=== PATIENT | male | born 1965 | race Caucasian/White ===

== ENCOUNTER → 2017-10-13 | Outpatient (CLI) | payer OTHER ==
--- NOTE | 2017-10-13 10:16 | XR ---
EXAMINATION TYPE: XR thoracic spine complete DATE OF EXAM: 10/13/2017 COMPARISON: NONE HISTORY: Pain Alignment is anatomic. There is no compression deformities. Vertebral body height and disc interspa tico are maintained. Curvature the spine noted. Mild hypertrophic changes anteriorly. IMPRESSION: 1. No acute abnormality.
== END | disposition home or self-care (01) ==
LOC: RADXRYALE 09:26
PROVIDERS: ATTEND Internal Medicine
DX: M54.6 Pain in thoracic spine (principal)
CPT/HCPCS: 72072

== ENCOUNTER → 2017-11-11 | Outpatient (CLI) | payer OTHER ==
--- NOTE | 2017-11-11 20:11 | MR ---
EXAMINATION TYPE: MR cervical spine wo con DATE OF EXAM: 11/11/2017 COMPARISON: NONE HISTORY: Neck pain with numbness TECHNIQUE: Multiplanar, multisequence images of the cervical spine were acquired. C2-C3: No evidence for degenerative disc disease. No disc bulge/herniation or protrusion. No Canal stenosis. Hypertrophic change of the facets result in mild left foraminal encroachment. C3-C4: No evidence for degenerative disc disease. No disc bulge/herniation or protrusion. No Canal stenosis. Hypertrophic change of the facets greater on the left results in mild left foraminal encr oachment. C4-C5: No evidence for degenerative disc disease. No disc bulge/herniation or protrusion. No Canal stenosis. Foramina are patent bilaterally. Facet arthropathy noted. C5-C6: There is degenerative disc disease and broad-based central and right paracentral disc herniati on resulting in anterior compression of spinal cord. Bilateral severe foraminal encroachment with fac et arthropathy. C6-C7: Central and right paracentral disc protrusion but no spinal cord contact. Facet arthropathy no jose juan. Mild right-sided foraminal encroachment. C7-T1: No evidence for degenerative disc disease. No disc bulge/herniation or protrusion. No Canal stenosis. Foramina are patent bilaterally. Cervical segments are intact. There is normal alignment. Cervical spinal cord is of normal signal. Craniovertebral junction relationships are within normal limits. There is straightening of the cerv ical spine with loss of the normal lordosis. IMPRESSION: 1. At C5-C6 there is a broad-based central and right paracentral disc herniation resulting in anterio r spinal cord compression and bilateral foraminal encroachment. Difficult to exclude abnormal signal within the spinal cord at this level in the axial images. Grossly on the sagittal image no abnormal s ignal noted. 2. At C6-C7 there is a right paracentral disc protrusion with mild right foraminal encroachment.
== END | disposition home or self-care (01) ==
LOC: RADMRIMAIN 14:39
PROVIDERS: ATTEND Internal Medicine
DX: M50.222 Other cervical disc displacement at C5-C6 level (principal)
CPT/HCPCS: 72141

== ENCOUNTER → 2018-04-26 | Outpatient (CLI) | payer OTHER ==
--- NOTE | 2018-04-26 12:33 | CONS ---
CONSULTATION Consultation note for sleep apnea. A very pleasant 53-year-old male patient, who is coming in for sleep apnea evaluation. He is pretty sure that he has obstructive sleep apnea. He was snoring loudly and he was quitting breathing. He did not have an outpatient investigation. He went online and bought a CPAP machine which was set at a pressure of 6 cm of water. He received some partial benefit yet the benefit is not complete and continues to be symptomatic. He is snoring. He quits breathing. He chokes at night time. He wakes up with dry mouth. He wakes up non-refreshed. He wakes up tired. He has trouble with paying attention, falling asleep during the day. He does not fall asleep while driving; however, he feels that he has an increased risk of falling asleep during day-to-day activities and even while driving. He has chronic anxiety and depression. He has no stamina, has no energy to do much of activities especially after work. His weight has been up over the years. No history of substance abuse. No history of alcoholism. Overall, he is up by 15 pounds over the past 1 year. PAST MEDICAL HISTORY: Obesity, chronic sinus allergies, depression, anxiety. PAST SURGICAL HISTORY: Past surgical history includes disc surgery C5-C6. ALLERGIES: Drug allergies are to PENICILLIN. OUTPATIENT MEDICATIONS: Outpatient medication list includes Zyrtec and Trintellix. SOCIAL HISTORY: He vaps, an ex-smoker of cigarettes. No history of alcoholism. No history of substance abuse. No history of IV drugs. FAMILY HISTORY: Negative for sleep apnea. REVIEW OF SYSTEMS: Twelve-point review of system was done. It is positive for weight gain. No insomnia. No grinding of the teeth. No sleepwalking or sleep talking. No palpitation or heartburn. No claustrophobia. No sexual dysfunction. No nocturnal heartburn, palpitation, chest pain or shortness of breath. PHYSICAL EXAMINATION: BP is 133/97, pulse 67, respirations 16, temperature 97.9 saturation 96% on room air. BMI of 37.4. Redmond score 16. Weight is 272. Height is 5 feet 11 inches. Neck size 18-1/4 inches. GENERAL APPEARANCE: Calm, comfortable. HEAD: Atraumatic, normocephalic. Neck is short, supple. Crowding posterior pharynx. Mallampati class 4. No goiter or neck mass. LUNGS: Diminished breath sounds otherwise clear. HEART: Sounds regular rate and rhythm. Normal S1, S2. No S3. No murmurs. ABDOMEN: Soft, nontender. No organomegaly. EXTREMITIES: No edema. No cyanosis or clubbing. NEUROLOGICALLY: The patient is alert and oriented x3. There is no focal neurological deficit. IMPRESSION: 1. Obstructive sleep apnea. Very high clinical suspicion for obstructive sleep apnea and this needs to be further investigated. 2. Chronic hypersomnia, Redmond score of 16. 3. Obesity with a body mass index of 37.4. 4. Anxiety/depression. 5. Chronic sinus allergies. PLAN: Proceed with immediate screening polysomnogram. My overall suspicion for obstructive sleep apnea is high. Will recommend treatment according to the results of the sleep study. He will likely need CPAP therapy at later stage especially once diagnosis of sleep apnea is confirmed. Driving precautions was given. Sleep hygiene measures were discussed. We will continue to follow. AMRIK / MARILYNN: [id number] /
== END | disposition home or self-care (01) ==
LOC: SLEEP 10:22
PROVIDERS: ATTEND Internal Medicine Critical Care Medicine
DX: G47.33 Obstructive sleep apnea (adult) (pediatric) (principal); J32.9 Chronic sinusitis, unspecified; F41.9 Anxiety disorder, unspecified; F32.9 Major depressive disorder, single episode, unspecified; E66.9 Obesity, unspecified; Z68.37 Body mass index [BMI] 37.0-37.9, adult; Z87.891 Personal history of nicotine dependence; Z88.0 Allergy status to penicillin; Z79.899 Other long term (current) drug therapy; Z98.890 Other specified postprocedural states
CPT/HCPCS: 99211

== ENCOUNTER → 2018-09-05 | Outpatient (CLI) | payer OTHER ==
--- NOTE | 2018-09-05 16:48 | PN ---
PROGRESS NOTE This is a 53-year-old male patient was diagnosed having severe symptomatic obstructive sleep apnea with an AHI of 57.9. The patient was given CPAP therapy at a pressure of 12 cm of water. Today he is coming in for a compliancy check. On today's evaluation the patient reports marked improvement in his sleep quality. He is feeling much better. He is waking up much more refreshed and alert during the day. Sleep quality is improved. Nocturnal arousals improved. Snoring has completely subsided. He is not waking up gasping for air. The nocturnal apneas have subsided. His leg kicks have also improved. As such, he is very much happy and content with the treatment. I checked his compliancy data and the patient is doing extremely well. His AHI while on treatment is down to 0.8. He is averaging more than 8 hours of CPAP use per night. His CPAP use for more than 4 hours above 90%. Leak factor is around 24 L/minute. He has gained around 20 pounds over this past 3 months. His current [place] score is at 8. REVIEW OF SYSTEMS: 12-point review of system was done. Positive findings are mentioned above in history of present illness. PHYSICAL EXAMINATION: BP is 133/76, pulse 82, respirations 16. [place] score is at 8. Temperature 97.8. Weight is 293, saturation 96% on room air. GENERAL APPEARANCE: Calm, comfortable. Head is atraumatic, normocephalic. Neck is short, supple. Crowding of posterior pharynx. There is no goiter or neck mass. Lungs diminished but otherwise clear. HEART: Sounds are heard. Regular rate and rhythm. Normal S1, S2. No S3, S4. No murmurs. ABDOMEN: Soft, nontender. No organomegaly. EXTREMITIES: No edema. No cyanosis or clubbing. NEUROLOGIC: A and O x3. There is no focal neurological deficits. Psychiatrically: Negative for anxiety or depression. IMPRESSION: 1. Severe obstructive sleep apnea with an AHI of 58. The patient underwent successful CPAP titration and treatment, currently on CPAP pressure of 12. 2. Obesity with interval weight gain in order of 20 pounds, current weight up to 293. 3. Hypersomnia, improved. [place] score is down to 8. 4. Snoring subsided. 5. Witnessed apneas subsided with CPAP therapy. 6. Depression. 7. Anxiety. 8. Moderate severe periodic limb movements improved with CPAP therapy. PLAN: 1. Continue CPAP at a pressure of 12 cm of water. 2. The patient is benefiting from the treatment. He is compliant. He is feeling much better. His sleep quality is improved and he is much more awake and alert during the day. He is using AirFit N20 nose mask. No issues with the mask seal. The patient is compliant. 3. Encourage weight loss. 4. Implement good sleep hygiene measures. 5. See me back in a year's time or earlier if needed. MMODL / IJN: [id number] /
== END ==
LOC: SLEEP 15:30
PROVIDERS: ATTEND Internal Medicine Critical Care Medicine
DX: G47.33 Obstructive sleep apnea (adult) (pediatric) (principal); E66.9 Obesity, unspecified; F32.9 Major depressive disorder, single episode, unspecified; F41.9 Anxiety disorder, unspecified; Z99.89 Dependence on other enabling machines and devices